=== PATIENT | female | born 1990 | race Caucasian/White ===

== ENCOUNTER 2024-04-29 12:39 | Outpatient (CLI) | payer OTHER, SELFPAY ==
--- OUTSIDE RECORDS SUMMARY | 2024-04-29 13:16 | XMS_ITS | Data Portability ---
Author Organization [facility], Main Office Address [address] [place] [address] Assessment No assessment recorded. Plan of Treatment Reminders Order Date Submit Date Provider Last Modified By Organization Details Last Modified Time Details Appointments None recorded. Lab None recorded. Referral None recorded. Procedures None recorded. Surgeries None recorded. Imaging None recorded. Medication Orders ketorolac 30 mg/mL (1 mL) injection solution 2023 024 [email or web address] Not available 14:22:28 Patient TargetsNo targets recorded. Patient Instructions Encounter Date Encounter Id Patient Instructions Last Modified By Organization Details Last Modified Time 08/18/2023 [id number] medical clearance* - patient is medically cleared to wear hearing aids. [email or web address] Not available 08/27/2023 09:08:10 Reason for Referral None Reported. Results Created Date Observation Date Name Description Value Unit Range Abnormal Flag Note LastModifiedBy Organization Detail LastModifiedTime 05/20/1905/19/2022 CBC/C OMPLE TE BLD COUNT W/DIF F white blood cells 4.7 x10'3 /uL 4.2-10 .8 Not Available [facility] (Lab) [address] [place], [address], 05/19/2022 19:54:59 05/20/19 23 05/19/2022 CBC/C OMPLE TE BLD COUNT W/DIF F red blood cells 4.73 x10'6 /uL 3.80-5 .20 Not Available [facility] (Lab) [address] [place], [address], 05/19/2022 19:54:59 05/20/19 23 05/19/2022 CBC/C OMPLE TE BLD COUNT W/DIF F hemoglobin 14.1 g/dL 12.0-1 5.6 Not Available [facility] (Lab) [address] [place], [address], 05/19/2022 19:54:59 05/20/19 23 05/19/2022 CBC/C OMPLE TE BLD COUNT W/DIF F hematocrit 43.2 % 35.7-4 5.7 Not Available [facility] (Lab) [address] [place], [address], 05/19/2022 19:54:59 05/20/19 23 05/19/2022 CBC/C OMPLE TE BLD COUNT W/DIF F mean red cell volume 91.3 fL 82.0-9 9.0 Not Available [facility] (Lab) [address] [place], [address], 05/19/2022 19:54:59 05/20/19 23 05/19/2022 CBC/C OMPLE TE BLD COUNT W/DIF F mean red cell hemoglobin 29.8 pg 27.0-3 3.0 Not Available [facility] (Lab) [address] [place], [address], 05/19/2022 19:54:59 05/20/19 23 05/19/2022 CBC/C OMPLE TE BLD COUNT W/DIF F mean RBC HGB concentratio n 32.6 g/dL 31.0-3 6.0 Not Available [facility] (Lab) [address] [place], [address], 05/19/2022 19:54:59 05/20/19 23 05/19/2022 CBC/C OMPLE TE BLD COUNT W/DIF F red cell distribution width 12.2 % 11.8-1 5.5 Not Available [facility] (Lab) [address] [place], [address], 05/19/2022 19:54:59 05/20/19 23 05/19/2022 CBC/C OMPLE TE BLD COUNT W/DIF F platelets 240 x10'3 /uL 150-40 0 Not Available [facility] (Lab) [address] [place], [address], 05/19/2022 19:54:59 05/20/19 23 05/19/2022 CBC/C OMPLE TE BLD COUNT W/DIF F mean platelet volume 10.6 fL 9.0-12 .4 Not Available [facility] (Lab) [address] [place], [address], 05/19/2022 19:54:59 05/20/19 23 05/19/2022 CBC/C OMPLE TE BLD COUNT W/DIF F neutrophils 59.9 % 39.0-7 2.0 Not Available [facility] (Lab) [address] [place], [address], 05/19/2022 19:54:59 05/20/19 23 05/19/2022 CBC/C OMPLE TE BLD COUNT W/DIF F lymphocytes 32.3 % 16.0-4 7.0 Not Available [facility] (Lab) [address] [place], [address], 05/19/2022 19:54:59 05/20/1905/19/2022 CBC/C OMPLE TE BLD COUNT W/DIF F monocytes 6.5 % 5.0-12 .0 Not Available [facility] (Lab) [address] [place], [address], 05/19/2022 19:54:59 05/20/1905/19/2022 CBC/C OMPLE TE BLD COUNT W/DIF F eosinophils 0.0 % 1.0-7. 0 low Not Available [facility] (Lab) [address] [place], [address], 05/19/2022 19:54:59 05/20/19 23 05/19/2022 CBC/C OMPLE TE BLD COUNT W/DIF F basophils 1.1 % 0.0-2. 0 Not Available [facility] (Lab) [address] [place], [address], 05/19/2022 19:54:59 05/20/19 23 05/19/2022 CBC/C OMPLE TE BLD COUNT W/DIF F immature granulocytes 0.2 % 0.00-0 .50 Not Available [facility] (Lab) [address] [place], [address], 05/19/2022 19:54:59 05/20/19 23 05/19/2022 CBC/C OMPLE TE BLD COUNT W/DIF F neutrophils, absolute count 2.84 x10'3 /uL 1.5-8. 0 Not Available [facility] (Lab) [address] [place], [address], 05/19/2022 19:54:59 05/20/19 23 05/19/2022 CBC/C OMPLE TE BLD COUNT W/DIF F lymphocytes, absolute count 1.53 x10'3 /uL 1.07-3 .43 Not Available [facility] (Lab) [address] [place], [address], 05/19/2022 19:54:59 05/20/19 23 05/19/2022 CBC/C OMPLE TE BLD COUNT W/DIF F monocytes, absolute count 0.31 x10'3 /uL 0.29-0 .99 Not Available [facility] (Lab) [address] [place], [address], 05/19/2022 19:54:59 05/20/19 23 05/19/2022 CBC/C OMPLE TE BLD COUNT W/DIF F eosinophils, absolute count 0.00 x10'3 /uL 0.02-0 .53 low Not Available [facility] (Lab) [address] [place], [address], 05/19/2022 19:54:59 05/20/19 23 05/19/2022 CBC/C OMPLE TE BLD COUNT W/DIF F basophils, absolute count 0.05 x10'3 /uL 0.01-0 .08 Not Available [facility] (Lab) [address] [place], [address], 05/19/2022 19:54:59 05/20/19 23 05/19/2022 CBC/C OMPLE TE BLD COUNT W/DIF F immature granulocytes ,absolute 0.01 x10'3 /uL 0.00-0 .05 Not Available [facility] (Lab) [address] [place], [address], 05/19/2022 19:54:59 05/20/19 23 05/19/2022 CBC/C OMPLE TE BLD COUNT W/DIF F nucleated red blood cells 0.0 % -0 Not Available [facility] (Lab) [address] [place], [address], 05/19/2022 19:54:59 05/20/19 23 05/19/2022 CBC/C OMPLE TE BLD COUNT W/DIF F NRBC# 0.00 x10'3 /uL Not Available [facility] (Lab) [address] [place], [address], 05/19/2022 19:54:59 05/20/19 23 05/19/2022 IRON/ TIBC PANEL total iron binding capacity 291 mcg/d L 265-47 5 Not Available [facility] (Lab) [address] [place], [address], 05/19/2022 20:55:14 05/20/19 23 05/19/2022 IRON/ TIBC PANEL % transferrin saturation 42 % 20-55 Not Available [facility] (Lab) [address] [place], [address], 05/19/2022 20:55:14 05/20/19 23 05/19/2022 IRON/ TIBC PANEL unsaturated iron bind capacity 169 mcg/d L 126-38 2 Not Available [facility] (Lab) [address] [place], [address], 05/19/2022 20:55:14 05/20/19 23 05/19/2022 IRON/ TIBC PANEL iron 122 mcg/d L 42-175 Not Available [facility] (Lab) [address] [place], [address], 05/19/2022 20:55:14 05/20/19 23 05/19/2022 COMPR EHENS FELIZ METAB OLIC PANEL sodium 142 mmol/ L 137-14 5 Not Available [facility] (Lab) [address] [place], [address], 05/19/2022 20:25:42 05/20/19 23 05/19/2022 COMPR EHENS FELIZ METAB OLIC PANEL potassium 4.5 mmol/ L 3.5-5. 1 Not Available [facility] (Lab) [address] [place], [address], 05/19/2022 20:25:42 05/20/19 23 05/19/2022 COMPR EHENS FELIZ METAB OLIC PANEL chloride 104 mmol/ L 98-107 Not Available [facility] (Lab) [address] [place], [address], 05/19/2022 20:25:42 05/20/19 23 05/19/2022 COMPR EHENS FELIZ METAB OLIC PANEL carbon dioxide 29 mmol/ L 22-30 Not Available [facility] (Lab) [address] [place], [address], 05/19/2022 20:25:42 05/20/19 23 05/19/2022 COMPR EHENS FELIZ METAB OLIC PANEL anion gap 13.5 mmol/ L 14-22 low Not Available [facility] (Lab) [address] [place], [address], 05/19/2022 20:25:42 05/20/19 23 05/19/2022 COMPR EHENS FELIZ METAB OLIC PANEL glucose 79 mg/dL 70-99 Not Available [facility] (Lab) [address] [place], [address], 05/19/2022 20:25:42 05/20/19 23 05/19/2022 COMPR EHENS FELIZ METAB OLIC PANEL BUN 13 mg/dL 8-19 Not Available [facility] (Lab) [address] [place], [address], 05/19/2022 20:25:42 05/20/19 23 05/19/2022 COMPR EHENS FELIZ METAB OLIC PANEL creatinine 0.77 mg/dL 0.66-1 .25 Not Available [facility] (Lab) [address] [place], [address], 05/19/2022 20:25:42 05/20/19 23 05/19/2022 COMPR EHENS FELIZ METAB OLIC PANEL GFR >60 Refer ence Range : [place] ge GFR Healt hy Adult : >60 mL/mi n/1.7 3 m2 Chron ic Kidne y Disea se: 15-60 mL/mi n/1.7 3 m2 Kidne y Failu re: <15/m L/min /1.73 m2 www.n iddk. nih.g ov The MDRD study equat ion has not been valid ated in child kymberly <18 years of age; pregn ant women ; the elder ly >85 years of age; or in some racia l or ethni c subgr oups, such as Hisok nics. Outsi de the valid ated citlali eters , estim ated GFR is less accur ate, requi ring clini edmund judgm ent on a case- by-ca se basis . Clini edmund inter preta tion for other races and ages must be made by the clini see. The MDRD study equat ion has not been valid ated for the evalu ation of serum creat inine relat ed to nutri arnaldo l statu s or medic ation usage . For perso ns <18 years of age, a pedia tric GFR calcu lator is avail able on the [facility] websi te: https ://zaira w.minesh hoopery.o rg/pr ofess ional s/kdo qi/gf r_cal culat or Not Available [facility] (Lab) [address] [place], [address], 05/19/2022 20:25:42 05/20/19 23 05/19/2022 COMPR EHENS FELIZ METAB OLIC PANEL alkaline phosphatase 44 U/L 38-126 Not Available [facility] (Lab) [address] [place], [address], 05/19/2022 20:25:42 05/20/19 23 05/19/2022 COMPR EHENS FELIZ METAB OLIC PANEL alanine aminotransfe rase 26 U/L 0-35 Not Available [facility] (Lab) [address] [place], [address], 05/19/2022 20:25:42 05/20/19 23 05/19/2022 COMPR EHENS FELIZ METAB OLIC PANEL aspartate aminotransfe rase 22 U/L 15-37 Not Available [facility] (Lab) [address] [place], [address], 05/19/2022 20:25:42 05/20/19 23 05/19/2022 COMPR EHENS FELIZ METAB OLIC PANEL bilirubin, total 0.50 mg/dL 0.20-1 .30 Not Available [facility] (Lab) [address] [place], [address], 05/19/2022 20:25:42 05/20/19 23 05/19/2022 COMPR EHENS FELIZ METAB OLIC PANEL calcium 9.8 mg/dL 8.4-10 .2 Not Available [facility] (Lab) [address] [place], [address], 05/19/2022 20:25:42 05/20/19 23 05/19/2022 COMPR EHENS FELIZ METAB OLIC PANEL total protein 8.0 g/dL 6.3-8. 2 Not Available [facility] (Lab) [address] [place], [address], 05/19/2022 20:25:42 05/20/19 23 05/19/2022 COMPR EHENS FELIZ METAB OLIC PANEL albumin 4.9 g/dL 3.4-5. 0 Not Available [facility] (Lab) [address] [place], [address], 05/19/2022 20:25:42 05/20/19 23 05/19/2022 COMPR EHENS FELIZ METAB OLIC PANEL globulin 3.1 g/dL 2.6-4. 2 Not Available [facility] (Lab) [address] [place], [address], 05/19/2022 20:25:42 05/20/19 23 05/19/2022 COMPR EHENS FELIZ METAB OLIC PANEL A/G ratio 1.6 ratio 1.0-2. 0 Not Available [facility] (Lab) [address] [place], [address], 05/19/2022 20:25:42 05/20/19 23 05/19/2022 LIPID PANEL cholesterol 175 mg/dL 140-19 9 NIH JESUS NSUS RECOM MENDA TION FOR AKIL STERO L: ADULT CHILD LOW RISK: <200 <170 BORDE RLINE : <200- 239 ----- HIGH RISK: >240 >200 Not Available [facility] (Lab) [address] [place], [address], 05/19/2022 20:25:46 05/20/19 23 05/19/2022 LIPID PANEL triglyceride s 56 mg/dL 0-150 NIH JESUS NSUS REPOR T RECOM MENDA TION FOR TRIGL YCERI TESSA: ADULT CHILD LOW RISK: <150 ----- BODER LINE: 150-1 99 ----- HIGH RISK: >200 ----- Not Available [facility] (Lab) [address] [place], [address], 05/19/2022 20:25:46 05/20/19 23 05/19/2022 LIPID PANEL HDL cholesterol 75 mg/dL 40- Not Available [facility] (Lab) [address] [place], [address], 05/19/2022 20:25:46 05/20/19 23 05/19/2022 LIPID PANEL LDL cholesterol, calculated 89 mg/dL 0-130 NIH JESUS NSUS REPOR T RECOM MENDA TIONS FOR LDL: ADULT CHILD LOW RISK <130 <110 (OPTI MAL LDL) <100 ----- BORDE RLINE : 130-1 59 ----- HIGH RISK: >160 >130 A TRIGL YCERI DE RESUL T >400 INVAL IDATE S THE CALCU LATIO N FOR LDL FRACT IONAT ION - THE LDL RESUL T WILL NOT BE REPOR CHATO. Not Available [facility] (Lab) [address] [place], [address], 05/19/2022 20:25:46 05/20/1905/19/2022 MAGNE SIUM magnesium 2.1 mg/dL 1.6-2. 3 Not Available [facility] (Lab) [address] [place], [address], 05/19/2022 20:25:47 05/20/19 23 05/19/2022 PHOSP HORUS phosphorus 3.9 mg/dL 2.5-4. 5 Not Available [facility] (Lab) [address] [place], [address], 05/19/2022 20:25:51 05/20/19 23 05/19/2022 PARAT HY.HO RM(PT H)INT ACT-W /O CA intact parathyroid hormone 42.6 pg/mL 24.0-7 8.0 Pleas e note new refer ence range effec tive 03/07 . Not Available [facility] (Lab) [address] [place], [address], 05/19/2022 20:54:16 05/20/19 23 05/19/2022 VITAM IN D 25-HY DROXY vd25oh 63.3 NG/mL 30-100 Vitam in D Statu s: Defic ient: <20 ng/mL Insuf ficie nt: 20-29 ng/mL Suffi cient : 30-10 0 ng/mL Not Available [facility] (Lab) [address] [place], [address], 05/19/2022 20:54:20 05/20/19 23 05/19/2022 FOLAT E, SERUM /PLAS MA folate >20.0 NG/mL 2.76-2 0.0 Not Available [facility] (Lab) [address] [place], [address], 05/19/2022 22:40:48 05/20/19 23 05/19/2022 LILIBETH TIN ferritin 17 NG/mL 6.24-1 37 Not Available [facility] (Lab) [address] [place], [address], 05/19/2022 20:56:21 05/20/19 23 05/19/2022 VITAM IN B12 (ANDREA STEFANIE ) vb12 894 pg/mL 239-93 1 Not Available [facility] (Lab) [address] [place], [address], 05/20/2022 00:06:38 Result Notes None recorded. Problems Name Problem SNOMED Code Status Onset Date Resolution Date Notes Provider Name and Address Organization Details Recorded Time Gestational diabetes mellitus 62482248 Active 2020 Not Available [employer] 03/01/202 3 18:57:20 Hearing disorder 240214732 Active 2016 Not Available [facility] 3 18:57:20 Asthma 286131835 Active 2016 Not Available [facility] 3 18:57:21 Migraine 58183135 Active 2016 Not Available [facility] 3 18:57:21 Hyperlipidemi a 83297916 Active 2020 Not Available [facility] 3 18:57:21 Hearing loss 11787038 Active 2023 JUAN Williamson-C [address], [address], [place], [address] , [employer] 4 14:50:16 Dental abscess 349001831 Active 2023 JUAN Williamson-C [address], [address], [place], [address] , [employer] 4 11:41:28 Problem Notes None recorded. Procedures Surgical History Date Name Laterality Status Provider Name and Address Organization Details Recorded Time 05/21/19 laparoscopic sleeve gastrectomy completed Not Available [facility] 04/09/2022 18:56:22 ligation of bilateral fallopian tubes completed Not Available [facility] 04/09/2022 18:56:22 section completed Not Available [facility] 04/09/2022 18:56:22 Imaging Results None recorded. Procedure Notes None recorded. Medical Equipment None Reported. Allergies No known drug allergies Medications Name Sig Start Date Stop Date Status Note LastModified by Organization Details LastModified Time multivitami n tablet 08/08 completed Not Available Not Available Not Available celecoxib 200 mg capsule TAKE 1 CAPSULE BY MOUTH WITH A SIP OF WATER IN THE MORNING ON SURGERY DAY. 07/11 completed Not Available Not Available Not Available ibuprofen 800 mg tablet 03/16 completed Not Available Not Available Not Available sumatriptan 100 mg tablet 1 po at onset of headache, may repeat in 2 hours if not effective . Do not exceed 2 tabs in 24 hours active Not Available Not Available No t Available metronidazo le 0.75 % (37.5 mg/5 gram) vaginal gel INSERT 1 APPLICATO RFUL VAGINALLY EVERY DAY AT BEDTIME FOR 5 DAYS 02/10 completed Not Available Not Available Not Available ondansetron HCl 4 mg tablet 06/18 completed Not Available Not Available Not Available atenolol 25 mg tablet 1/2 tab po qday active Not Available Not Available No t Available penicillin V potassium 500 mg tablet TAKE 1 TABLET BY MOUTH EVERY 6 HOURS FOR 10 DAYS active Not Available Not Available No t Available topiramate 25 mg tablet 1 po bid x 7 days then 1 po qAM and 2 po qhs x 7 days then 2 po bid thereafte r active Not Available Not Available No t Available acetaminoph en 300 mg-codeine 30 mg tablet 06/18 completed Not Available Not Available Not Available acetaminoph en 500 mg tablet 07/11 completed Not Available Not Available Not Available ketorolac 30 mg/mL (1 mL) injection solution Inject 1 mL every day by intramusc ular route for 1 day. 2023 active Not Available Not Available Not Avai lable amitriptyli ne 25 mg tablet 1 po qhs 03/16 completed Not Available Not Available Not Available ferrous sulfate 325 mg (65 mg iron) tablet TK 1 T PO BID 06/18 completed Not Available Not Available Not Available ursodiol 300 mg capsule TAKE 1 CAPSULE BY MOUTH TWICE DAILY. TAKE FOR 6 MONTHS POST-OP THEN STOP. 01/13 completed Not Available Not Available Not Available gabapentin 300 mg capsule TAKE 1 CAPSULE BY MOUTH WITH A SIP OF WATER ONCE FOR [address] HOSPITAL. 07/11 completed Not Available Not Available Not Available omeprazole 20 mg capsule,del ayed release TAKE 1 CAPSULE BY MOUTH DAILY BEFORE BREAKFAST 01/13 completed Not Available Not Available Not Available levofloxaci n 500 mg tablet 06/18 completed Not Available Not Available Not Available scopolamine 1 mg over 3 days transdermal patch APPLY PATCH TO SKIN BEHIND EAR ONCE THE NIGHT BEFORE SURGERY. 07/11 completed Not Available Not Available Not Available ondansetron 4 mg disintegrat ing tablet DISSOLVE 1 TABLET ON THE TONGUE EVERY 4 HOURS NEEDED FOR NAUSEA OR VOMITING 02/10 completed Not Available Not Available Not Available naproxen 500 mg tablet 06/18 completed Not Available Not Available Not Available oxycodone 5 mg tablet 07/11 completed Not Available Not Available Not Available escitalopra m 10 mg tablet Take 1 tablet every day by oral route for 30 days. active Not Available Not Available No t Available Jolivette 0.35 mg tablet 06/18 completed Not Available Not Available Not Available topiramate 50 mg tablet 1 po qAM and 2 po qhs x 7 days then 2 po bid thereafte r active Not Available Not Available No t Available nitrofurant oin monohydrate /macrocryst als 100 mg capsule 06/18 completed Not Available Not Available Not Available 08/08 completed Not Available Not Available Not Available calcium 600 mg (as carbonate)- vitamin D3 10 mcg (400 unit) tablet TK 1 T PO BID 08/08 completed Not Available Not Available Not Available [facility] 150 150 mg tablet TK 1 T PO BID 06/18 completed Not Available Not Available Not Available Nexplanon 68 mg subdermal implant Inject by subcutane ous route. 10/27 completed 01/28 16 Not Available Not Available Not Available 28 mg iron-800 mcg tablet 06/18 completed Not Available Not Available Not Available Caltrate with Vitamin D3 600 mg-20 mcg (800 unit) tablet TK 1 T PO BID 06/18 completed Not Available Not Available Not Available PrePlus 27 mg iron-1 mg tablet TK 1 T PO QD UTD 06/18 completed Not Available Not Available Not Available Fluzone Quad (PF) 60 mcg (15 mcg x 4)/0.5 mL IM syringe PHARMACIS T ADMINISTE RED IMMUNIZAT ION ADMINISTE RED AT TIME OF DISPENSIN G 10/21 completed Not Available Not Available Not Available Vitals Date Recorded Body weight Body temperature Oxygen saturation Oxygen saturation in Arterial blood by Pulse oximetry Systolic blood pressure Diastolic blood pressure Provider Name and Address Organization Details Last Updated DateTime 4 53966.1 9 g 97.7 [degF] 96 % 96 % 106 mm[Hg] 62 mm[Hg] Meet Ramos RN [place] [facility] 4 09:28:34 Date Recorded Heart rate Provider Name an d Address Organization Details Last Updated DateTime 02/10/2023 60 /min Ava Long MD [address], [address], [place], [address], [facility] [employer] [facility] 02/10/2023 09:40:04 Date Recorded Body weight Body temperature Heart rate Oxygen saturation Oxygen saturation in Arterial blood by Pulse oximetry Systolic blood pressure Diastolic blood pressure Provider Name and Address Organization Details Last Updated DateTime 4 23850.0 4 g 97.9 [degF] 98 /min 98 % 98 % 112 mm[Hg] 80 mm[Hg] Meet Ramos RN [facility] [employer] 4 14:29:44 Date Recorded Body weight Body mass index (BMI) Body height Body temperature Heart rate Oxygen saturation Oxygen saturation in Arterial blood by Pulse oximetry Systolic blood pressure Diastolic blood pressure Provider Name and Address Organization Details Last Updated DateTime 4 96477.2 2 g 27.3 kg/m2 160.02 cm 98.2 [degF] 70 /min 99 % 99 % 116 mm[Hg] 80 mm[Hg] Meet Ramos RN [facility] [employer] [facility] 4 13:57:56 Social History Question Answer Notes LastModified by Phon[employer] Details LastModified Time Tobacco Smoking Status Never Smoker Not Available [facility] 04/09/2022 18:56:21 In The 14 Days Before Symptom Onset, Have You Had Close Contact With A Laboratory-confirm ed COVID-19 While That Case Was Ill? No [id number] Information not available 04/09/2022 In The 14 Days Before Symptom Onset, Have You Had Close Contact With A Person Who Is Under Investigation For COVID-19 While That Person Was Ill? No [id number] Information not available 04/09/2022 What Type Of Diet Are You Following? REGULAR [id number] Information not available 04/09/2022 What Was The Date Of Your Most Recent Tobacco Screening? 02/10/2023 [email or web address] Information not available 02/10/2023 Do You Have Any Dietary Restrictions? No [id number] Information not available 04/09/2022 Sex: Unknown Functional Status Question Answer Note LastModified by Ph[employer] Details LastModified Time What is your exercise level? None [id number] Information not available 04/09/2022 Mental Status None recorded. Family History Relationship Description Onset Age of this Age Resolved Age Notes LastModified by Organization Details LastModified Time Father Essential hypertension [email or web address] Not available 10/22/2023 13:54:14 Father Hyperlipidem ia [email or web address] Not available 13:54:14 Paternal Grandfather Myocardial infarction [id number] Not available 04/09/2022 18:56:23 Paternal Grandfather Diabetes mellitus [id number] Not available 04/09/2022 18:56:23 Paternal Grandfather Malignant neoplastic disease ?penil e [email or web address] Not available 10/22/2023 13:54:14 Maternal Grandfather Diabetes mellitus [id number] Not available 04/09/2022 18:56:23 Maternal Grandmother Diabetes mellitus [id number] Not available 04/09/2022 18:56:23 Mother Depressive disorder [id number] Not available 04/09/2022 18:56:23 Medical History No medical history recorded. Gynecological History Statement/Question Response Dislike of Light during Menstrual Headac he N Menses Monthly Y Abnormal Pap N Current Control Method None Obstetrics History GPAL:G 0 P 0 0 0 0 Immunizations Vaccine Type Date Status Note Provider Nam e and Address Organization Details Recorded Time Influenza, split virus, quadrivalent, PF 11/01/2020 completed Not Available [facility] 3 18:59:24 Influenza, split virus, quadrivalent, PF 10/27/2017 completed Not Available [facility] 3 18:59:24 Past Encounters Encounter ID Performer Location Encounter Start Date Encounter Closed Date Diagnosis/Indication Diagnosis SNOMED-CT Code Diagnosis ICD10 Code Diagnosis Note [id number] [facility] [address] [place] [address] 08/08/2020 00:00:00 08/08/2020 14:53:53 [id number] [facility] [address] [place] [address] 09/06/2020 00:00:00 09/06/2020 08:16:46 [id number] [facility] [place] [address] [place] [address] 10/09/2020 00:00:00 10/09/2020 10:07:29 [id number] [facility] [place] [address] [place] [address] 11/01/2020 00:00:00 11/01/2020 12:37:14 [id number] [facility] [place] [address] [place] [address] 12/10/2020 00:00:00 12/10/2020 11:25:40 [id number] [facility] [place] [address] [place] [address] 01/16/2021 00:00:00 01/16/2021 09:43:37 [id number] [facility] [place] [address] [place] [address] 07/11/2021 00:00:00 08/07/2021 08:49:43 [id number] [facility] [place] [address] [address] [place] [address] 08/21/2021 00:00:00 09/06/2021 11:47:17 [id number] [facility] [place] [address] [place] [address] 11/13/2021 00:00:00 11/13/2021 10:14:29 [id number] [facility] [place] [address] [place] [address] 11/29/2021 00:00:00 11/29/2021 12:54:39 [id number] [facility] [place] [address] [place] [address] 01/13/2022 00:00:00 01/13/2022 11:32:43 [id number] Ava Long MD [facility] [place] [address] [place] [address] 05/19/2022 09:11:47 05/19/2022 09:34:36 [id number] Ava Long MD [facility] [place] [address] [facility] [place] [address] 02/10/2023 09:22:35 02/10/2023 09:46:51 Adult health examination [id number] Z00.00 Gets annual flu vaccinerec ommend covid boosterSee s rib stiffener and heel dipper for papsplan mammogram age 39colon cancer screen age 44Gets labs done yearly with bariatric doctor, next appt is May History of bariatric surgical procedure [id number] Z98.84 doing very wellgets annual labs with bariatric program [id number] Felipa Patel [facility] Primary [facility] [address] [facility] [address] [place] [address] 05/19/2023 08:52:23 05/19/2023 09:27:26 [id number] CHRISTINE Williamson [facility] Primary [facility] [address] [facility] [address] [place] [address] 08/18/2023 14:24:39 08/18/2023 15:07:22 Hearing loss [id number] H91.93 [id number] CHRISTINE Williamson [facility] Primary [facility] [address] [facility] [address] [place] [address] 10/22/2023 13:52:25 10/22/2023 14:18:08 Migraine [id number] G43.909 Patient will follow up as needed. Hearing loss [id number] H9 1.93 patient is still waiting to get hearing aids, has been having scheduling issues due to kids' school schedules. Health Concerns Section Related Observation LastModified by Organization Detai ls LastModified Time None Recorded Concern Status LastModified by Organization Details LastModified Time None Recorded Advance Directives Directive None Recorded Payers Encounter Date Sequence Insurance Name Policy Number Policy Pablo Covered Member ID Pablo Member ID Guarantor Name 05/19/2022 1 [facility] - DOS ON OR AFTER 20 (MEDICAID REPLACEMENT - HMO) Cecilia Srivastava [id number] Cecilia Srivastava 02/10/2023 1 [facility] - [facility] ON OR AFTER 08/09/20 (MEDICAID REPLACEMENT - HMO) Cecilia Srivastava [id number] Cecilia Srivastava 05/19/2023 1 [facility] - DOS ON OR AFTER 20 (MEDICAID REPLACEMENT - HMO) Cecilia Srivastava [id number] Cecilia Srivastava 08/18/2023 1 [facility] - DOS ON OR AFTER 20 (MEDICAID REPLACEMENT - HMO) Cecilia Srivastava [id number] Cecilia Srivastava 10/22/2023 1 [facility] - [facility] ON OR AFTER 08/09/20 (MEDICAID REPLACEMENT - HMO) Cecilia Srivastava [id number] Cecilia Srivastava Notes Date Note Type Note Provider Name and Address Organization Details Recorded Time 02/10/2023 text/html Here for wellness exam Ava Long MD [address], [place], [address], [employer] 02/10/2023 09:43:01 08/18/2023 text/html Patient is 33 year old female that presents to office for medical clearance to receive hearing aids. Patient is trying to get hearing aids from [facility] in [place], [place]. Patient had hearing screening completed on 06/03/23 at [facility]. [address] [address]jotbki: [phone]: [phone] CHRISTINE Williamson [address], [address], [place], [address], [employer] 08/18/2023 14:53:06 10/22/2023 text/html Patient is a 33 year old female that presents to the office for migraine. Patient reports history of migraines starting in 2009, but has not had one since her weight loss surgery in 2021. Patient reports migraine is in the forehead region with pressure behind both eyes, eye lids feel heavy. Patient reports it started 2 weeks ago, she initially started treating with Tylenol which provided mild relief however after 3 days she was not getting any relief from Tylenol. Patient is not sensitive to light or sound and denies vision changes. Patient denies nausea and vomiting. JUAN Williamson-Neftali [address] [facility], [facility] [address], [place], [address], [place] [facility] 10/22/2023 14:17:29 OBGyn Episode No OBEpisode recorded.
--- OUTSIDE RECORDS SUMMARY | 2024-04-29 13:16 | XMS_ITS | Clinical Summary ---
Author Organization [facility] Address [address] [place] [address] Care Team Providers Care Electric Meter Installer Helper Name Role Phone Ava Long MD Primary Care Provider [phone] Source Comments [facility] [employer],non-owned Affiliates and Associated Physician Practices is amultiple site organization consisting of ambulatory clinics and hospital sitesin [place], [place], [place] and [place]. This disclosure is being madepursuant to the Care Everywhere program and may not contain all information available regarding this patient. Last updated 17.[facility] Allergies No known active allergies Medications * Be aware that medications may not be up to date on this document. Alwaysverify current medications with the patient. Medication Sig Dispensed Refills Start Date End Date Status Multiple Vitamins-Minerals (CENTRUM SILVER PO) Take by mouth 2 times daily Active CALCIUM CITRATE PO Take 1 tablet by mouth 2 times daily Active ondansetron, disintegrating, (Zofran ODT) 4 MG tablet ondansetron 4 mg disintegrating tablet DISSOLVE 1 TABLET ON THE TONGUE EVERY 4 HOURS NEEDED FOR NAUSEA OR VOMITING Active Multiple Vitamins-Minerals (HAIR SKIN AND NAILS FORMULA PO) Take by mouth once daily Active Active Problems Patient Care Coordination No te Formatting of this note migh t be different from the original. Diapers Provided. 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 Per patient report, her mother told her the underlying cause was likely infectious. Hearing better on the left side than the right. Wears bilateral hearing aids. Assessment & Plan (09/15/2018 9:26 AM CDT): Maintain scheduled hearing test (September,) Would benefit from extra provider precautions to ensure patient understanding. Encourage written instructions for complicated patient tasks. Assessment & Plan (08/25/2018 10:55 AM CDT): Written instructions given today Maternal- Medicine recommendations: Maintain scheduled hearing test (September,) Would benefit from extra provider precautions to ensure patient understanding. Encourage written instructions for complicated patient tasks. Assessment & Plan (08/18/2018 8:38 PM CDT): Would benefit from extra provider precautions to ensure patient understanding. Encourage written instructions for complicated patient tasks. Resolved Problems Problem Noted Date Diagnosed Date Resolved Date GDM (gestational diabetes mellitus) 08/11/2018 10/16/2020 Overview (08/18/2018): GCT 163 GTT 101,244,246,105 Assessment & Plan (10/13/2018 12:41 PM CDT): Good overall glycemic control demonstrated for the past week of glucose values; Appropriate overall growth noted 10/13, with AC 92% Maternal- Medicine recommendations: Patient now a total transfer of care to [facility], has appointment next Thursday Insulin regimen: Continue Admelog 4 units with lunch, continue 6 units with dinner Continue basaglar 28units qhs Instructed not to give meal time insulin if not planning to eat Perform blood glucose measurements 4 times, record food diary and send logs weekly for review to the diabetic team Twice weekly nonstress tests starting at 34 weeks; patient completing @ [place] Twice daily kick counts Preeclampsia surveillance, warning signs reviewed again today Serial growth every 4 weeks with last assessment at 37-38 weeks for mode of delivery Delivery initiation between 39-40 weeks blood glucose checks to determine level of insulin requirement after delivery--anticipate drastic reduction in insulin resistance Would benefit from and weight reduction Diabetes testing 4-5 weeks after delivery with review at 6 week visit Assessment & Plan (09/29/2018 11:49 AM CDT): Good overall glycemic control demonstrated for the past week of glucose values; Fasting glucoses had been trending upward when sent to DM nurse and basaglar increased 09/27 LGA fetus noted on ultrasound 09/15; repeat growth in 2 weeks Maternal- Medicine recommendations: Insulin regimen: Continue Admelog 4 units with lunch /continue 6 units with dinner Continue basaglar 25units qhs: increased last 09/27 Increase night time basaglar to 28 units if next two fasting glucoses are 90 or above Instructed not to give meal time insulin if not planning to eat Perform blood glucose measurements 4 times, record food diary and send logs weekly for review to the diabetic team Twice weekly nonstress tests starting at 34 weeks; patient completing with Fleet Manager Twice daily kick counts Preeclampsia surveillance, warning signs reviewed again today Serial growth every 4 weeks with last assessment at 37-38 weeks for mode of delivery Delivery initiation between 39-40 weeks; patient scheduled for repeat C/S 10/29 blood glucose checks to determine level of insulin requirement after delivery--anticipate drastic reduction in insulin resistance Would benefit from and weight reduction Diabetes testing 4-5 weeks after delivery with review at 6 week visit Assessment & Plan (09/15/2018 10:12 AM CDT): Great glycemic control demonstrated for the past week of glucose values LGA fetus noted again on ultrasound today Maternal- Medicine recommendations: Insulin regimen: Decrease Admelog to 4 units lunch /continue 6 units dinner; basaglar [facility] Perform blood glucose measurements 4 times, record food diary and send logs weekly for review to the diabetic team Twice weekly nonstress tests starting at 34 weeks; patient has already begun testing with Fleet Manager Twice daily kick counts Preeclampsia surveillance, warning signs reviewed today Serial growth every 4 weeks with last assessment at 38 weeks for mode of delivery Delivery initiation between 39-40 weeks blood glucose checks to determine level of insulin requirement after delivery--anticipate drastic reduction in insulin resistance Would benefit from and weight reduction Diabetes testing 4-5 weeks after delivery with review at 6 week visit Assessment & Plan (08/25/2018 12:19 PM CDT): Improved postprandial values with interval addition of mealtime insuling. Still with elevated fasting hyperglycemia Maternal- Medicine recommendations: Insulin regimen: Admelog 6 units lunch / 6 units dinner; basaglar [facility] Perform blood glucose measurements 4 times , record food diary and send logs weekly for review to the diabetic team Recommend Basaglar 10 units nightly [expected need 22 units: will gradually increase to target dose] Twice weekly nonstress tests starting at 34 weeks Serial growth every 4 weeks with last assessment at 38 weeks for mode of delivery Delivery initiation between 39-40 weeks blood glucose checks to determine level of insulin requirement after delivery--anticipate drastic reduction in insulin resistance Would benefit from and weight reduction Diabetes testing 4-5 weeks after delivery with review at 6 week visit Assessment & Plan (08/18/2018 8:43 PM CDT): Suboptimal glucose control with diet and exercise. Estimated weight on 08/13/2018 with abdominal circumference at the 97th percentile. Maternal- Medicine recommendations: Maternal- Medicine to comanage gestational diabetes Perform blood glucose measurements 4 times , record food diary and send logs weekly for review to the diabetic team Recommend Basaglar 10 units nightly [expected need 22 units: will gradually increase to target dose] Twice weekly nonstress tests starting at 34 weeks Serial growth every 4 weeks with last assessment at 38 weeks for mode of delivery Delivery initiation between 39-40 weeks Would benefit from and weight reduction Diabetes testing 4-5 weeks after delivery with review at 6 week visit Supervision of high-risk pre gnancy of young multigravida 08/11/2018 11/01/2018 Overview (08/11/2018): O+/Rubella NI/-/-/HIV neg 12.6/39/295 GC/CT neg/neg Pap NILM, HPV neg AFP neg GCT 163, GTT 101,244,246,105 11.5/34.1 History of delivery 08/11/2018 10/16/2020 Overview (10/13/2018): One prior low transverse delivery without labor; Consider re-counseling regarding trial of labor once seen at [facility]. Assessment & Plan (10/13/2018 12:43 PM CDT): One prior low transverse delivery without labor; received LTCS report today, scanned into media. Consider re-counseling regarding trial of labor once seen at [facility]. Patient aware that her previously scheduled tubal ligation will have to be approved by the ethics committee at [facility] to have it done at the time of her delivery there. Assessment & Plan (09/15/2018 9:26 AM CDT): Plans repeat section with bilateral tubal ligation, scheduled with her Fleet Manager. Assessment & Plan (08/25/2018 12:19 PM CDT): Has decided that she would like a repeat delivery with tubal ligation Our office requested verification on the hospital for delivery from the referring Fleet Manager: [facility] was communicated as the delivering hospital Assessment & Plan (08/18/2018 8:36 PM CDT): Potential candidate for trial of labor after delivery if desired by the patient--risks and benefits reviewed Rubella non-immune status, antepartum 08/11/2018 10/16/2020 Immunizations Name Administration Dates Next Due INFLUENZA VACCINE, QUADR. (F LUZONE; FLULAVAL; FLUARIX; AFLURIA QUADRIVALENT; 6MO+), 0.5 ML (IIV4) 10/30/2018 MMR 11/01/2018 TDAP (7yrs+) 10/31/2018(Deferred: Patient Condition - Pt states that she recieved vaccine in July 2018) Family History Medical History Relation Name Comments High Blood Pressure Father High Cholesterol Father CVA Maternal Grandfather Diabetes; unknown type Maternal Grandfather Heart Failure Maternal Grandfather High Blood Pressure Maternal Grandfather High Cholesterol Maternal Grandfather Diabetes; unknown type Maternal Grandmother High Blood Pressure Maternal Grandmother Migraine Mother Other - Sebd Teacher Mother History of pree clampsia Cancer Paternal Grandfather Heart Failure Paternal Grandfather High Blood Pressure Paternal Grandfather High Cholesterol Paternal Grandfather Relation Name Status Comments Father Maternal Grandfather Maternal Grandmother Mother Paternal Grandfather Social History Tobacco Use Types Packs/Day Years Used Date Smoking Tobacco: Never Smokeless Tobacco: Never Alcohol Use Standard Drinks/Week Comments No 0 (1 standard drink = 0.6 oz pur e alcohol) AUDIT-C Answer Date Recorded Q1: How often do you have a drink containing alc ohol? Never 05/21/2021 Average Number of Drinks Not on file 022 Q3: How often do you have si x or more drinks on one occasion? Never 05/21/2021 PHQ-2 Answer Date Recorded Patient Health Questionnaire-2 Score 1 05/18/2023 Sex and Gender Information Value Date Recorded Sex Assigned at Female 08/30/2020 7:17 AM CDT Gender Identity Female 08/30/2020 7:17 AM CDT Sexual Orientation Straight 08/30/2020 7: 17 AM CDT Last Filed Vital Signs Vital Sign Reading Time Taken Comments Blood Pressure 99/56 05/18/2023 9:23 AM CDT Pulse 59 05/18/2023 9:23 AM CDT Temperature 36.8 C (98.2 F) 05/18/2023 9:23 AM CDT Respiratory Rate 18 05/18/2023 9:23 AM CDT Oxygen Saturation 99% 05/18/2023 9:23 AM CDT Inhaled Oxygen Concentration - - Weight 65.2 kg (143 lb 12.8 oz) 05/18/2023 9:23 AM CDT Height 167.6 cm (5' 6 ) 05/18/2023 9:23 AM CDT Body Mass Index 23.21 05/18/2023 9:23 AM CDT Plan of Treatment Upcoming Encounters Date Type Department Care Team (Late st Contact Info) Description 06/06/2024 9:15 AM CDT Clinical Support [facility] [address] [place] [phone] 06/06/2024 10:00 AM CDT Office Visit [facility] [address] [place] [phone] Sandy House APRN-CNP [address] [place] [address] Health Maintenance Due Date Last Done Comments PAP SMEAR 1989 HIV SCREENING 2004 HEPATITIS C SCREENING 07/12/2007 DTAP/TDAP/TD VACCINES (1 - Tdap) 2008 HEPATITIS B VACCINE (1 of 3 - 19+ 3-dose series) 2008 PNEUMOCOCCAL VACCINE (1 of 2 - PCV) 2008 COVID-19 VACCINE (1 - season) 2023 INFLUENZA VACCINE (#1) 2023 , 11/12/2021, 11/01/2020, Additional history exists DEPRESSION SCREENING 02/10/2024 05/18/2023 ZOSTER VACCINE (1 of 2) 07/17/2039 HIB VACCINE Aged Out No longer eligi ble based on patient's age to complete this topic HPV VACCINE Aged Out No longer eligi ble based on patient's age to complete this topic MENINGOCOCCAL (Group B) VACCINE SHARED DECISION-MAKING Aged Out No longer eligible based on patient's age to complete this topic MENINGOCOCCAL GROUPS A/C/Y/W VACCINE Aged Out No longer eligible based on patient's age to complete this topic Medical Devices Implanted Type Area Child Nutrition Director Device Identifier Shelf Expiration Date Model / Serial / Lot Mesh Srg [employer] 10x7cm Reinf - [id number] Implanted:Qty: 1 on 05/21/2021 by Michael Lanza MD at [facility] [employer] [facility] 10/08/2023 [id number] / [id number] / N/A Advance Directives * Full Code (Latest Code Status on File) Date Activated Date Inactivated Comments 05/21/2021 11:49 AM 05/22/2021 3:50 PM * Full Code Date Activated Date Inactivated Comments 11/13/2020 11:28 AM 11/13/2020 2:21 PM * Full Code Date Activated Date Inactivated Comments 10/29/2018 5:06 PM 11/01/2018 1:27 PM Care Teams Electric Meter Installer Helper Relationship Specialty Start Date End Date Ava Long MD [address] [place] [address] [place] [id number] PCP - General Family Medicine 09/12/20
== END 2024-04-29 12:40 | disposition home or self-care (01) ==
LOC: ANHAUDIO 12:41
PROVIDERS: PCP Nurse Practitioner Family; Visit Provider Nurse Practitioner Family
DX: H90.3 Sensorineural hearing loss, bilateral (principal)
CPT/HCPCS: 92553; 92555; 92567